=== PATIENT | male | born 1950 | race Caucasian/White ===

== ENCOUNTER 2022-04-01 13:28 | Emergency (ER) | payer OTHER ==
[~2022-04-01] VITALS: Ht 165.1 cm; Wt 77.1 kg
[2022-04-01 13:58] VITALS: BP_SYST 125
[2022-04-01 15:37] LABS: BASOPHILS # (AUTO) 0.1 K/uL (0.0-0.2); BASOPHILS % (AUTO) 0.7 % (0.0-2.0); EOSINOPHILS % (AUTO) 0.1 % (0.0-4.0); HEMATOCRIT 40.2 % (36-54); HEMOGLOBIN 14.5 g/dL (14.0-18.0); LYMPHOCYTES # (AUTO) 0.5 K/uL (1.0-5.5); LYMPHOCYTES % (AUTO) 4.7 % (20.5-51.5); MEAN CORPUSCULAR HEMOGLOBIN 32 pg (27-31); MEAN CORPUSCULAR HGB CONC 36 % (32-36); MEAN CORPUSCULAR VOLUME 90 fL (79.0-98.0); MONOCYTES # (AUTO) 0.7 K/uL (0.0-1.0); NEUTROPHILS # (AUTO) 8.6 K/uL (1.8-7.7); NEUTROPHILS % (AUTO) 87.5 % (40.0-70.0); PLATELET COUNT (AUTO) 180 K/uL (130-430); RED BLOOD CELL COUNT(AUTO) 4.47 MIL/uL (4.2-6.2); RED CELL DISTRIBUTION WIDTH 12.9 % (9.0-15.0); WHITE BLOOD COUNT (AUTO) 9.9 K/uL (4.8-10.8)
[2022-04-01 15:53] LABS: PROTHROMBIN TIME 10.3 SECS (9.5-12.5)
[2022-04-01 16:06] LABS: ANION GAP 10 (5-15); CALCIUM 8.9 mg/dL (8.4-11.0); CHLORIDE 107 mmol/L (98-107); CREATININE 1.07 mg/dL (0.55-1.30); GLUCOSE 127 mg/dL (70-99); POTASSIUM 3.8 mmol/L (3.5-5.1); SODIUM SERUM 138 mmol/L (136-145); UREA NITROGEN, BLOOD 18 mg/dL (8-21)
[2022-04-01 16:12] LABS: GFR AFRICAN AMERICAN 88 mL/min (>90)
[2022-04-01 16:15] LABS: ALANINE AMINOTRANSFERASE 27 U/L (12-78); ALBUMIN 4.3 g/dL (3.4-4.8); ASPARTATE AMINOTRANSFERASE 25 U/L (10-37); TOTAL BILIRUBIN 1.5 mg/dL (0.0-1.0)
--- NOTE | 2022-04-01 16:29 | NUR ---
Patient to ER bed 06 to gown for evaluation. Side rails up.
--- NOTE | 2022-04-01 16:40 | NUR ---
MICHAEL Martinez at bedside examining patient.
--- NOTE | 2022-04-01 17:00 | NUR ---
Pt here from home reporting vomiting and dizziness since this AM. Denies any pain or any other sx. Alert and oriented upon face to face assessment. PMH vertigo; denies any medication prescribed. Pending MD carter.
--- NOTE | 2022-04-01 19:20 | NUR ---
Report given to Chris RUDOLPH to assume care of pt
[2022-04-01] MEDS ORDERED: ONDA-8 TL (20:55)
[2022-04-01] MEDS ORDERED: MECL-160 PO (20:55)
[2022-04-01 21:50] VITALS: BP_SYST 124
--- NOTE | 2022-04-01 21:54 | NUR ---
Patient given written and verbal discharge instructions and verbalizes understanding. ER MD discussed with patient the results and treatment provided. Patient in stable condition. ID arm band removed. Rx of given. Patient educated on pain management and to follow up with PMD. Pain Scale 0/10. Opportunity for questions provided and answered. Medication side effect fact sheet provided. Patient A/Ox4, VSS, ambulatory, resp even and unlabored. NAD noted at this time.
== END 2022-04-01 21:50 | disposition home or self-care (01) ==
LOC: SED 13:28
DX: U07.1 COVID-19 (principal); R42 Dizziness and giddiness; R11.10 Vomiting, unspecified; R53.1 Weakness; Z79.899 Other long term (current) drug therapy
CPT/HCPCS: 36415; 71045; 80053; 83605; 84484; 85025; 85610-TC; 85730-TC; 87040; 93005; 99285

== ENCOUNTER 2022-08-28 13:42 | Emergency (ER) | payer OTHER ==
[~2022-08-28] VITALS: Ht 165.1 cm; Wt 84.8 kg
[~2022-08-28 13:42] MED LIST: MECL-160 PO; ONDA-8 TL
[2022-08-28 13:45] VITALS: BP_SYST 136
[2022-08-28] MEDS ORDERED: ONDANSETRON 4 MG ODT TAB PO ONE (15:00)
[2022-08-28 16:48] LABS: ANION GAP 9 (5-15); CALCIUM 9.1 mg/dL (8.4-11.0); CHLORIDE 107 mmol/L (98-107); CREATININE 1.31 mg/dL (0.55-1.30); GLUCOSE 110 mg/dL (70-99); UREA NITROGEN, BLOOD 36 mg/dL (8-21)
[2022-08-28 16:49] LABS: BASOPHILS % (AUTO) 0.2 % (0.0-2.0); EOSINOPHILS % (AUTO) 0.2 % (0.0-4.0); HEMOGLOBIN 15.3 g/dL (14.0-18.0); LYMPHOCYTES # (AUTO) 0.8 K/uL (1.0-5.5); LYMPHOCYTES % (AUTO) 11.6 % (20.5-51.5); MEAN CORPUSCULAR HEMOGLOBIN 32 pg (27-31); MEAN CORPUSCULAR HGB CONC 35 % (32-36); MEAN CORPUSCULAR VOLUME 93 fL (79.0-98.0); MONOCYTES # (AUTO) 0.7 K/uL (0.0-1.0); MONOCYTES % (AUTO) 9.8 % (1.7-9.3); NEUTROPHILS # (AUTO) 5.6 K/uL (1.8-7.7); NEUTROPHILS % (AUTO) 78.2 % (40.0-70.0); PLATELET COUNT (AUTO) 202 K/uL (130-430); RED BLOOD CELL COUNT(AUTO) 4.75 MIL/uL (4.2-6.2); RED CELL DISTRIBUTION WIDTH 12.7 % (9.0-15.0); WHITE BLOOD COUNT (AUTO) 7.2 K/uL (4.8-10.8)
[2022-08-28 16:53] LABS: ALANINE AMINOTRANSFERASE 44 U/L (12-78); ALBUMIN 4.2 g/dL (3.4-4.8); AMYLASE 50 U/L (0-100); ASPARTATE AMINOTRANSFERASE 38 U/L (10-37); C-REACTIVE PROTEIN QUANT 1.1 mg/dL (0-0.5); LACTATE DEHYDROGENASE 240 U/L (85-227); LIPASE 60 U/L (73-393); TOTAL BILIRUBIN 1.5 mg/dL (0.0-1.0)
[2022-08-28 16:54] LABS: ACETONE, SERUM NEGATIVE (NEGATIVE)
[2022-08-28] MEDS ORDERED: ACET-2634 PO (17:29)
[2022-08-28] MEDS ORDERED: ONDA-8 TL (17:29)
[2022-08-28] MEDS ORDERED: NACL 0.9% 2,000 ML IV ONE (17:30)
[2022-08-28 18:35] VITALS: BP_SYST 134
== END 2022-08-28 18:35 | disposition home or self-care (01) ==
LOC: SED 13:42
DX: K52.9 Noninfective gastroenteritis and colitis, unspecified (principal); E86.0 Dehydration; R10.84 Generalized abdominal pain; R11.10 Vomiting, unspecified; Z79.899 Other long term (current) drug therapy; Z20.822 Contact with and (suspected) exposure to COVID-19
CPT/HCPCS: 99284; 74176; 87426; 80053; 82009; 82150; 83615; 83690; 85025; 86140; 36415; 76376; 83605; Q0162; J7030